=== PATIENT | female | born 1965 | race Caucasian/White ===

== ENCOUNTER 2018-03-03 20:13 | Emergency (ER) | payer OTHER ==
--- OUTSIDE RECORDS SUMMARY | 2018-03-03 20:18 | XMS REPORT ---
:1965 External Reference #:[id number] Author Organization [facility] Address [address] [place] [address] Phone [phone] Care Team Providers Name Role Phone WAYNE Bird Care Team Information Anesthesiology Technologist Unavailable Payers Type Date Identification Numbers Payment Provider Subscriber Commercial Effective: Policy Number: Cristhian Green 2012 [id number] Medicaid Expires: 2013 PayID: [id number] [address] [place] [id number] Medigap Part B Effective: Policy Number: Medicaid/Computer Claudette Green 2013 [id number] Science Expires: 2014 Group Name: 1 1 [address] PayID: [id number] [place] [address] Commercial Effective: 2014 Policy Number: Cristhian Green [id number] Medicaid Expires: 2017 PayID: [id number] [address] [place] [phone] Commercial Effective: 2017 Policy Number: Cristhian Green [id number] Medicaid PayID: [id number] 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 Cigarette Use Never Smoked Cigarettes ETOH Use Occasionally consumes alcohol Recreational Drug Use Denies Drug Use Daily Caffeine Consumes on average 2 cups of coffee per day Enjoy Exercising Enjoys exercising regular exericse, 4-5 times/week, walks, dances and hoola hoops Allergies, Adverse Reactions, Alerts Date Description Reaction Status Severity Comments 03/25/2013 Penicillins active hives, tongue swelling 03/25/2013 Ceclor active anaphylaxis 03/25/2013 Bee Sting active 03/25/2013 Dairy active Medications Medication Date Status Form Strength Qnty SIG Indications Ordering Provider Ketoconazole Active Cream 2% 30gm apply to Shawnti R. 018 rash on [facility], arm twice [employer] daily as needed Herbal Mood Active Shawnti R. Pill 013 [facility], [employer]TR [employer] Hydroxyzine HCL Hx Tablets 25mg 40tabs 1 by Shawnti R. 015 - mouth [facility], four [employer] 018 times a day as needed for itching Alprazolam Hx Tablets 0.25mg 20twen 08/19 or 1 309.9 [place] R. 014 - ty by mouth [facility], twice a [employer] 015 day as needed anxiety Calcium 1000 + Hx Tablets 1000-800mg- Shawnti R. D 013 - Unit [facility], OTR [employer] 018 Warren Seed Hx Powder Shawnti R. 013 - [facility], OTR [employer] 018 Spirolina Hx Shawnti R. 013 - [facility], OTR [employer] OPER[employer] 018 Vital Signs Date Vital Result Comment 01/27/2018 Weight 157.00 lb Weight in kg's 71.215 BP Systolic 100 mmHg BP Diastolic 68 mmHg Heart Rate 76 /min Body Temperature 98.0 F Respiratory Rate 16 /min 11/10/2017 Weight 161.00 lb Weight in kg's 73.030 BP Systolic 110 mmHg BP Diastolic 80 mmHg Heart Rate 76 /min Body Temperature 98.9 F Height 68 inches 5'8" BMI (Body Mass Index) 24.5 kg/m2 O2 % BldC Oximetry 99 % 12/20/2016 Weight 157.00 lb Weight in kg's 71.215 BP Systolic 113 mmHg BP Diastolic 80 mmHg Heart Rate 80 /min Body Temperature 99.3 F 05/26/2015 Weight 150.00 lb Weight in kg's 68.040 BP Systolic 110 mmHg BP Diastolic 84 mmHg Heart Rate 84 /min 03/14/2014 Weight 143.00 lb Weight in kg's 64.865 BP Systolic 102 mmHg BP Diastolic 74 mmHg Heart Rate 72 /min 03/25/2013 Weight 141.00 lb Weight in kg's 63.958 BP Systolic 116 mmHg BP Diastolic 80 mmHg Heart Rate 80 /min Height 68 inches 5'8" BMI (Body Mass Index) 21.4 kg/m2 Results Test Date Test Result H/L Range Note Laboratory test finding 12/20/2016 Cyclic Citrullinated Pep <15.6 U 1 Igg C Reactive Protein 1.01 mg/L < 5.00 2 Babesia Microti Abs (Igg,Igm) 12/20/2016 Babesia microti IgG <1:64 Babesia microti IgM <1:20 Babesia microti Interpretation See Comment 3 Laboratory test finding 12/20/2016 Anti Nuclear Antibody 0.4 U 4 Comp Metabolic Panel 12/20/2016 Sodium 137 mmol/L 133-145 Potassium 4.4 mmol/L 3.5-5.0 Chloride 104 mmol/L 101-111 Co2 Carbon Dioxide 26 mmol/L 22-32 Anion Gap 7 mmol/L 2-11 Glucose 119 mg/dL High 70-100 Blood Urea Nitrogen 16 mg/dL 6-24 Creatinine 0.90 mg/dL 0.51-0.95 BUN/Creatinine Ratio 17.8 8-20 Calcium 9.6 mg/dL 8.6-10.3 Total Protein 6.9 g/dL 6.4-8.9 Albumin 4.4 g/dL 3.2-5.2 Globulin 2.5 g/dL 2-4 Albumin/Globulin Ratio 1.8 1-3 Total Bilirubin 0.60 mg/dL 0.2-1.0 Alkaline Phosphatase 71 U/L 34-104 Alt 15 U/L 7-52 Ast 18 U/L 13-39 Egfr Non- 66.3 >60 Egfr 85.2 >60 5 CBC Auto Diff 12/20/2016 White Blood Count 7.0 10^3/uL 3.5-10.8 Red Blood Count 4.81 10^6/uL 4.0-5.4 Hemoglobin 14.4 g/dL 12.0-16.0 Hematocrit 44 % 35-47 Mean Corpuscular Volume 91 fL 80-97 Mean Corpuscular Hemoglobin 30 pg 27-31 Mean Corpuscular HGB Conc 33 g/dL 31-36 Red Cell Distribution Width 13 % 10.5-15 Platelet Count 218 10^3/uL 150-450 Mean Platelet Volume 9 um3 7.4-10.4 Abs Neutrophils 3.6 10^3/uL 1.5-7.7 Abs Lymphocytes 2.7 10^3/uL 1.0-4.8 Abs Monocytes 0.5 10^3/uL 0-0.8 Abs Eosinophils 0.2 10^3/uL 0-0.6 Abs Basophils 0.1 10^3/uL 0-0.2 Abs Nucleated RBC 0 10^3/uL Granulocyte % 51.7 % 38-83 Lymphocyte % 38.2 % 25-47 Monocyte % 6.7 % 1-9 Eosinophil % 2.6 % 0-6 Basophil % 0.8 % 0-2 Nucleated Red Blood Cells % 0.1 Laboratory test finding 12/20/2016 Erythrocyte Sed Rate 10 mm/Hr 0-30 6 Rheumatoid Factor <15 IU/mL <15 7 Lyme Western Blot 12/20/2016 Lyme Disease IgG Ab WB Negative Negative Lyme Disease IgG Bands Present p41, p18, kDa Lyme Disease IgM Ab WB Negative Negative Lyme Disease IgM Bands Present No bands detecte <SEE NOTE> kDa 8 Lyme Disease Interpretation See Comment 9 Laboratory test finding 12/20/2016 Vitamin D Total 25(Oh) 30.7 ng/mL 30- 50 10 Vitamin B12 154 pg/mL Low 180-914 11 TSH (Thyroid Stim Horm) 1.36 mcIU/mL 0.34-5.60 12 CBC No Diff 03/25/2013 White Blood Count 7.4 10^3/uL 4.8-10.8 Red Blood Count 4.74 10^6/uL 4.0-5.4 Hemoglobin 14.9 g/dL 12.0-16.0 Hematocrit 43 % 35-47 Mean Corpuscular Volume 92 fL 80-97 Mean Corpuscular Hemoglobin 31 pg 27-31 Mean Corpuscular HGB Conc 34 g/dL 31-36 Red Cell Distribution Width 13 % 10.5-15 Platelet Count 206 10^3/uL 150-450 Mean Platelet Volume 9 um3 7.4-10.4 Comp Metabolic Panel 03/25/2013 Sodium 140 mmol/L 133-145 Potassium 4.1 mmol/L 3.5-5.0 Chloride 106 mmol/L 101-111 Co2 Carbon Dioxide 27.0 mmol/L 22-32 Anion Gap 7.0 mmol/L 2-11 Glucose 90 mg/dL 70-100 Blood Urea Nitrogen 13 mg/dL 6-24 Creatinine 1.00 mg/dL 0.50-1.40 BUN/Creatinine Ratio 13.0 8-20 Calcium 9.7 mg/dL 8.1-9.9 Total Protein 6.3 g/dL 6.2-8.1 Albumin 4.5 g/dL 3.6-5.4 Globulin 1.8 g/dL Low 2-4 Albumin/Globulin Ratio 2.5 1-3 Total Bilirubin 1.0 mg/dL 0.4-1.5 Alkaline Phosphatase 42 U/L 30-110 Alt 14 U/L 14-54 Ast 19 U/L 12-42 Egfr Non- 59.4 >60 Egfr 76.4 >60 13 Lipid Profile (Trig/Chol/HDL) 03/25/2013 Triglycerides 80 mg/dL 40-200 Cholesterol 199 mg/dL Less than 200 HDL Cholesterol 58 mg/dL 40-60 14 Cholesterol/HDL Ratio 3.4 Average 1-4.44 LDL Cholesterol 125.0 High Less Than 100 15 Laboratory test finding 03/25/2013 TSH (Thyroid Stimulating 1.79 miu/mL 0.34-5.60 16 Horm) Vitamin B12 264 pg/mL 180-914 17 Urine DIP 03/25/2013 Leukocytes neg Neg Urine Nitrites neg Neg Urine pH 5 5-6 Total Protein, Urine neg Neg Urine Glucose norm Norm Urine Ketones neg Neg Urobilinogen norm Norm Urine Bilirubin neg Neg Urine Blood trace Neg Specific Seffner 1.015 1.01-1.02 1 REFERENCE VALUE <20.0 (Negative) Test Performed by: [facility] - [address] [address] 2 Acute inflammation: >10.00 3 ANTIBODY NOT DETECTED REFERENCE RANGES: IgG <1:64 IgM <1:20 Elevated antibody levels to B. microti indicate exposure to the organism. Human babesiosis infection is transmitted by the bite of an infected Ixodes tick or less frequently from transfusion with blood from an infected donor. Definitive diagnosis is made by identifying intraerythrocytic organisms in peripheral blood. In patients with low parasitemia, antibody detection by IFA is recommended. IgG levels greater than or equal to 1:1024 can be detected in acute phase patients with parasites in blood smears. The IFA assay can be used as a seroepidemiologic tool to study the frequency and distribution of B. microti in endemic areas especially in persons with mixed infections also involving Borrelia burgdorferi. This test was developed and its analytical performance characteristics have been determined by [facility]. It has not been cleared or approved by the U.S. Food and Drug Administration. The FDA has determined that such clearance or approval is not necessary. This assay has been validated pursuant to the CLIA regulations and is used for clinical purposes. Test Performed by: [facility] [address] [place] [address] 4 REFERENCE VALUE <=1.0 (Negative) Test Performed by: [address] [address] 5 Because ethnic data is not always readily available, this report includes an eGFR for both -Americans and non- Americans. The National Kidney Disease Education Program (NKDEP) does not endorse the use of the MDRD equation for patients that are not between the ages of 18 and 70, are , have extremes of body size, muscle mass, or nutritional status, or are non- or non-. According to the National Kidney Foundation, irrespective of diagnosis, the stage of the disease is based on the level of kidney function: Stage Description GFR(mL/min/1.73 m(2)) 1 Kidney damage with normal or decreased GFR 90 2 Kidney damage with mild decrease in GFR 60-89 3 Moderate decrease in GFR 30-59 4 Severe decrease in GFR 15-29 5 Kidney failure <15 (or dialysis) 6 [id number] 7 Test Performed by: [facility] - [address] [address] 8 No bands detected 9 Specific serologic response to B. burgdorferi infection is not detected, but cannot rule out early infection during which low or undetectable antibody levels to B. burgdorferi may be present. If clinically indicated, a new serum specimen should be submitted in 7-14 days. ADDITIONAL INFORMATION CDC criteria require >=5 bands for IgG or >=2 bands for IgM for the Immunoblot to be considered positive. Bands (e.g.,p41) may be detected in patients without Lyme disease, and patterns not meeting the CDC criteria should be interpreted with caution. Immunoblot should be ordered only on specimens that are positive or equivocal by a FDA-licensed Lyme disease antibody screening test (e.g., EIA). Test Performed by: [facility] - [address] [address] 10 [id number] 11 Normal Range 180 to 914 Indeterminate Range 145 to 180 Deficient Range <145 12 [id number] 13 Because ethnic data is not always readily available, this report includes an eGFR for both -Americans and non- Americans. The National Kidney Disease Education Program (NKDEP) does not endorse the use of the MDRD equation for patients that are not between the ages of 18 and 70, are , have extremes of body size, muscle mass, or nutritional status, or are non- or non-. According to the National Kidney Foundation, irrespective of diagnosis, the stage of the disease is based on the level of kidney function: Stage Description GFR(mL/min/1.73 m(2)) 1 Kidney damage with normal or decreased GFR 90 2 Kidney damage with mild decrease in GFR 60-89 3 Moderate decrease in GFR 30-59 4 Severe decrease in GFR 15-29 5 Kidney failure <15 (or dialysis) 14 HDL Interpretation: Undesirable: High Risk: Less than 40 mg/dL Desirable: Low Risk: Greater than 60 mg/dL 15 LDL Interpretation: Low Risk Optimal Level: LDL Less than 100 mg/dL Near or Above Optimal: LDL 100-129 mg/dL Borderline High Risk: LDL 130-159 mg/dL High Risk: LDL 160-189 mg/dL Very High Risk: LDL Greater than 189 mg/dL 16 FASTING 17 FASTING Procedures Description No Information Encounters Type Date Location Provider CPT E/M Dx Office Visit 11/10/2017 9:00a Main Office WAYNE Bird [address] K58.0 R23.9 Office Visit 12/20/2016 10:30a Main Office WAYNE Bird 19593 R53.83 M15.9 S10.86XA S10.86xA Office Visit 05/26/2015 9:30a Main Office WAYNE Bird [address]488 R23.9 Office Visit 03/14/2014 4:15p Main Office WAYNE Bird [address] 465.9 309.9 Office Visit 03/25/2013 9:00a Main Office WAYNE Bird [address] V70.0 V72.62 Plan of Care Future Appointment(s):02/26/2018 10:45 am - WAYNE Bird at Main Ohyqct2501/27/2018 - KHAI Bird-[id number] Encounter for screening for osteoporosisRecommendations:take 1000 or 2000 units of vitamin D every day, get regular weight bearing exercise as wellK58.2 Mixed irritable bowel syndromeComments:doing better with dietary changes
[2018-03-03 20:21] VITALS: BP 113/74
--- NOTE | 2018-03-03 21:02 | UC ---
Lower Extremity/Ankle HPI - HPI Summary HPI Summary: This is jonatan Boucher documenting for attending Melba Bernard MD. This patient is a 53 year old F presenting to [facility] with a chief complaint of pain in her right great toe since earlier this evening. The patient reports the pain began after she dropped amassage table from the back of her pick-up truck onto her right foot while she was wearing open-toed shoes. The patient rates the pain 7/10 in severity. No bleeding, no abraison. Symptoms aggravated by movement and bearing weight. no ice applied. Patient took ibuprofen x1 will little relief of pain and she has been elevating her right foot. Pt's medications reviewed this visit - History of Current Complaint Chief Complaint: UCLowerExtremity Stated Complaint: FOOT INJURY Time Seen by Provider: 03/03/18 20:53 Hx Obtained From: Patient Onset/Duration: Sudden Onset, Lasting Hours, Still Present Severity Initially: Moderate Severity Currently: Moderate Pain Intensity: 7 Pain Scale Used: 0-10 Numeric Aggravating Factor(s): Standing, Ambulation Alleviating Factor(s): Nothing - Allergies/Home Medications Allergies/Adverse Reactions: Allergies Allergy/AdvReac Type Severity Reaction Status Date / Time cefaclor Allergy Difficulty Verified 03/03/18 20:23 Breathing/Wheezing Penicillins Allergy Difficulty Verified 03/03/18 20:23 Breathing/Wheezing PMH/Surg Hx/FS Hx/Imm Hx Previously Healthy: Yes - Surgical History Surgical History: Yes Surgery Procedure, Year, and Place: intestines - Family History Known Family History: Positive: None - Social History Occupation: Employed Full-time Lives: With Family Alcohol Use: Weekly Substance Use Type: None Smoking Status (MU): Never Smoked Tobacco Review of Systems Constitutional: Negative - negative fever Skin: Bruising - on right foot Musculoskeletal: Myalgia - pain in right great toe Neurological: Negative - negative numbness in right great toe All Other Systems Reviewed And Are Negative: Yes Physical Exam - Summary Physical Exam Summary: Vital Signs Reviewed: Yes A+Ox3, no distress Eyes: Conjunctiva Clear ENT: Hearing grossly normal neck: supple Respiratory: Positive: No respiratory distress, No accessory muscle use Cardiovascular: skin color reflect adequate perfusion Musculoskeletal Exam: ABZZI x 4 without difficulty + flex/ext knee/ankle Neurological: Positive: Alert, ambulatory without difficulty Psychological: Positive: Normal Response To Family Skin: Positive: no rash, no abraison + ecchymosis lateral aspect of great toe no crepitus Triage Information Reviewed: Yes Vital Signs: Initial Vital Signs Temp 98.8 F 03/03/18 20:17 Pulse 85 03/03/18 20:17 Resp 20 03/03/18 20:17 BP 113/74 03/03/18 20:17 Pulse Ox 100 03/03/18 20:17 Diagnostics - Radiology Right big toe XR Xray Interpretation: No Acute Changes - Impression: no acute findings Radiology Interpretation Completed By: ED Physician - Dr. Bernard, pending final report Lower Extremity Course/Dx - Course Course Of Treatment: Pt with right great pain s/p massage table fell on toe. No open wounds. imaging neg. crutches. ice. elevate. motrin/apap - Differential Dx/Diagnosis Provider Diagnoses: toe contusion Discharge - Sign-Out/Discharge Documenting (check all that apply): Patient Departure - Discharge Plan Condition: Stable Disposition: HOME Patient Education Materials: Crutch Instructions (ED), Foot Contusion (ED) Referrals: Huma Nunez VORT[employer] OPERATOR [Primary Care Provider] - Additional Instructions: - anticipate increased pain for the next 1-2 days, this is normal - Alternate ibuprofen (advil, Motrin) 600mg and tylenol every 3 hours for pain. Take with food. Do NOT take for more than 4-5 -apply ice (20 min at a time) every 2-3 hours for the next 2 days -use crutches until you can walk normally without a limp -Elevate your leg - this will help with swelling and pain - Your xrays will be reviewed by a radiologist tomorrow. If there is a broken bone or other finding identified by the radiologist, you will receive a call from a care [employer] team member. -Contact your doctor to arrange a follow-up appointment next week. Contact your doctor or return with questions or concerns - Billing Disposition and Condition Condition: STABLE Disposition: Home
[2018-03-03] MEDS ORDERED: Acetaminophen TAB* 325 MG PO ONE (21:29)
--- NOTE | 2018-03-04 07:53 | RAD ---
INDICATION: "Table fell on toe TECHNIQUE: 3 views of the right great toe were obtained. FINDINGS: The visualized bones are normal alignment. Joint spaces appear maintained. No fracture is seen. IMPRESSION: NO EVIDENCE FOR FRACTURE. IF THE PATIENT'S SYMPTOMS PERSIST RECOMMEND FOLLOW-UP IMAGING. R0
== END 2018-03-03 21:37 | disposition home or self-care (01) ==
LOC: UCEAST 20:13
DX: S90.111A Contusion of right great toe without damage to nail, initial encounter (principal); Z88.1 Allergy status to other antibiotic agents; Z88.0 Allergy status to penicillin; W20.8XXA Other cause of strike by thrown, projected or falling object, initial encounter; Y92.9 Unspecified place or not applicable
CPT/HCPCS: 99202; A9270-GY; G0463

== ENCOUNTER 2019-11-11 07:39 | Day surgery (SDC) | payer OTHER ==
[~2019-11-11 07:39] MED LIST: Acetaminophen TAB* 325 MG ONE; Acetaminophen TAB* 325 MG PO ONE; Buffered Lidocaine 1% SYRIN* 1 ML/SYRINGE INTRADERM ONE; Lactated Ringers 1000 ML Bag* 1,000 ML IV SCH
[2019-11-11] MEDS ORDERED: ceFAZolin 2 GM PREMIX in ORs 0 GM/0 ML BAG ONE (07:50)
[2019-11-11] MEDS ORDERED: Clindamycin 900 MG/D5W BAG(*) 900 MG/50 ML BAG IVPB ONE (08:20)
[2019-11-11] MEDS ORDERED: Bupivacaine 0.25% SDV* 30 ML ONE (08:36)
[2019-11-11] MEDS ORDERED: Midazolam* 1 MG/ML 2 ML VIAL (2 MG) ONE ×2 (08:39→08:42)
[2019-11-11] MEDS ORDERED: fentaNYL* 50 MCG/ML 2 ML VIAL (100 MCG VIAL) ONE ×2 (08:42→08:43)
[2019-11-11] MEDS ORDERED: Propofol* 10 MG/ML 20 ML BTL ONE (08:44)
[2019-11-11] MEDS ORDERED: Lidocaine 2% PF * 5 ML VIAL ONE (08:44)
[2019-11-11] MEDS ORDERED: PROCHLORPERAZINE INJ 5 MG/ML 2 ML VIAL IV PRN (09:27)
[2019-11-11] MEDS ORDERED: oxyCODONE TAB* 5 MG TAB PO PRN (09:27)
[2019-11-11] MEDS ORDERED: Ketorolac INJ* 30 MG/ML 1 ML VIAL IV PRN (09:27)
[2019-11-11] MEDS ORDERED: Naloxone* 0.4 MG/ML 1 ML VIAL IV PRN (09:27)
[2019-11-11] MEDS ORDERED: diPHENhydraMINE IV* 50 MG/ML 1 ml VIAL (BENADRYL) IV PRN (09:27)
[2019-11-11] MEDS ORDERED: Phenylephrine 40 MCG/ML SYRINGE ONE ×2 (09:47)
[2019-11-11] MEDS ORDERED: EPHEDrine (Pressors)* 50 MG/ML VIAL ONE (10:17)
[2019-11-11] MEDS ORDERED: Ondansetron INJ* 2 MG/ML VIAL ONE (10:31)
[2019-11-11] MEDS ORDERED: HYDROmorphone INJ1* 1 MG/ML SYRINGE ONE (10:39)
[2019-11-11 12:24] VITALS: BP 95/54
--- NOTE | 2019-11-11 12:30 | OP ---
DATE OF OPERATION: 11/11/19 [facility] DATE OF : 67 SURGEON: Brandon Lentz MD. FASHION ARTIST: SLICK Meehan. An assistant statistician was needed for the procedure to aid in the positioning of the arm and retraction. ANESTHESIOLOGIST: Dr. Dunham. ANESTHESIA: Spinal plus MAC. PRE-OP DIAGNOSIS: Right displaced transverse patellar fracture. POST-OP DIAGNOSIS: Right displaced transverse patellar fracture. OPERATIVE PROCEDURE: Open reduction and internal fixation of the right knee transverse patellar fracture. INDICATIONS: Ms. Green is 54 years old. She fell. She had a relatively low- energy transverse patellar fracture. We talked about treatment options. She wanted to proceed with surgery. She understands the risks of infection, wound problems, hardware failure and/or fixation failure. She wants to proceed. IMPLANTS: Arthrex cannulated patellar screws and FiberTape, tension band. ESTIMATED BLOOD LOSS: 5 mL. COMPLICATIONS: None. FINDINGS: See above and below. DESCRIPTION OF PROCEDURE: Ms. Green was seen in the preoperative holding area. The correct side, site, and procedure were identified. We came back to the operating room. She was positioned on the OR table with the bump underneath the hip and the leg positioned up on the bone foam. The leg was then pre-scrubbed and prepped and draped in the usual fashion. A time-out was performed. A longitudinal incision was made over the midline of the patella. Dissection was carried down. Full thickness flaps were raised off of the quadriceps tendon , paratenon and off the patellar tendon. Paratenon, the flaps were raised. Actually relatively small rents in the retinaculum medially and laterally were exposed. The fracture hematoma was all debrided out. I released the periosteum at the fracture. I just saw a nice good view of the bony edges. Once I had prepared the ends of the bone and had everything nice and clean and the bony edges exposed, I reduced the fracture by placing a couple of K-wires, one proximally and one in the distal fragment. Then, I used the Joystick to reduce the fracture and I then clamped things into place with a King clamp, with a couple of smaller clamps medially and laterally. I then brought in the mini C- arm fluoroscopy and confirmed the reduction and marked out the trajectory and position of my anticipated K-wires. I then made a slit in the patellar tendon in the quadriceps tendon and using the C- guide, I advanced the Arthrex guidewire up through the patella from distal to proximal. I then used a C- clamp to place the second guidewire in the same manner more laterally. I measured and selected a 36 mm screw for my medial screw and a 32 mm screw for my lateral screw. These were placed with washers. I then drilled and placed the screws with washers. I got excellent purchase on the screws. Excellent compression with near anatomic reduction. I then removed all the clamps and the wires. I used the Zacarias needle to pass the FiberTape through the medial screw and then through the lateral screw. The maximum tension was set and the FiberTape was tied down distally and medially right near the screw head. The knot was then laid down and I closed my split that I had made in the patellar tendon with #1 Ethibond sutures sewing down the knot, so that it would not be prominent. Remainder of the FiberTape was trimmed. The remainder of the little splits I had made in the patellar and quadriceps tendon at each exit and entry site were closed with 0 Vicryl suture. The rent in the retinaculum which I had extended a little to gain good visualization of joint surface were closed with 0 Vicryl suture. The wound was copiously irrigated out. Hemostasis was obtained with the Bovie. The subcutaneous tissue was reapproximated with 2-0 Vicryls. The skin was closed with shira. Marcaine 0.25% was infiltrated all around the operative area. The wound was dressed with Xeroform, 4x4s, ABDs, sterile Webril, and then an Alfonso bandage was applied on the length of the leg. The leg was then placed in a range of motion knee brace with the brace locked from 0 to 10 degrees. She was taken to the recovery room in stable condition. POSTOPERATIVE PLAN: She will have the brace on at all times and she can weight bear as tolerated in the brace. It was explained to her very clearly that the brace is to be on at all times. She is to sleep in the brace. I will follow her up in about 2 weeks in the office. [id number] #: [id number] LIANG
== END 2019-11-11 12:30 | disposition home or self-care (01) ==
LOC: OREAST 07:39
PROVIDERS: ATTEND Orthopaedic Surgery Hand Surgery
DX: S82.031A Displaced transverse fracture of right patella, initial encounter for closed fracture (principal); W01.0XXA Fall on same level from slipping, tripping and stumbling without subsequent striking against object, initial encounter; Y92.9 Unspecified place or not applicable
CPT/HCPCS: 76000; A9270-GY; C1713; J0690; J1170; J2250; J2405; J2704; J3010; J3490